=== PATIENT | male | born 1970 | race Caucasian/White ===

== ENCOUNTER 2020-07-21 12:57 | Emergency (ER) | payer BC ==
[~2020-07-21] VITALS: Ht 165.1 cm; Wt 88.9 kg
[2020-07-21 13:11] VITALS: Ht 165.1 cm; Wt 88.9 kg
[2020-07-21 14:38] VITALS: BP 135/75
[2020-07-21 14:44] LABS: CARBON DIOXIDE 24.2 mmol/L (21-32); CHLORIDE SERUM 101 mmol/L (98-107); CREATININE SERUM 0.7 mg/dL (0.7-1.3); GFR1 > 60 mL/min; GLUCOSE SERUM 219 mg/dL (74-106); SODIUM SERUM 134 mmol/L (136-145)
[2020-07-21 14:45] LABS: BASOPHIL % 1.1 % (0.2-1.5); PLATELET COUNT 182 x10^3mcL (152-348)
[2020-07-21 14:48] LABS: ALBUMIN 3.9 g/dL (3.4-5.0); ALKALINE PHOSPHATASE 133 U/L (46-116); ALT/SGPT 53 U/L (16-63); AST/SGOT 27 U/L (15-37); BILIRUBIN TOTAL 1.49 mg/dL (0.20-1.00); RED CELL DISTRIBUTION WIDTH 16.2 % (12.1-16.2); TOTAL PROTEIN, SERUM 7.9 g/dL (6.4-8.2)
[2020-07-21 14:52] LABS: rbc morphology (normal/abnorm) NORMAL (NORMAL)
== END 2020-07-21 15:55 | disposition home or self-care (01) ==
LOC: ED 12:57
PROVIDERS: Emergency Medicine
DX: E11.65 Type 2 diabetes mellitus with hyperglycemia (principal)
CPT/HCPCS: 82962